=== PATIENT | female | born 1970 | race American Indian/Alaskan Native ===

== ENCOUNTER 2018-12-10 18:26 | Emergency (ER) | payer OTHER ==
--- NOTE | 2018-12-10 19:30 | Event Note ---
ED Screening Note Date of service: 12/10/18 Time: 19:26 ED Screening Note: This is a 48 y.o. F. that presents with right knee pain. Patient states her right knee popped back into place last night. She continue to feel like it will dislocate again. Patient states this happens occasionally but it never last as long as it was this time. PMH of leukemia This initial assessment/diagnostic orders/clinical plan/treatment(s) is/are subject to change based on patients health status, clinical progression and re- assessment by fellow clinical providers in the ED. Further treatment and workup at subsequent clinical providers discretion. Patient/guardian urged not to elope from the ED as their condition may be serious if not clinically assessed and managed. Initial orders include: XR right knee
--- NOTE | 2018-12-10 20:01 | XRay Report ---
Right knee-3 views INDICATION: pain and swelling anterior patella. COMPARISON: None. IMPRESSION: No acute osseous or soft tissue abnormality. No significant DJD. Signer Name: Erwin Hilliard MD Signed: 12/10/2018 7:57 PM Workstation Name: [id number]
--- NOTE | 2018-12-10 21:50 | Emergency Department Report ---
ED Extremity Problem HPI - General Chief complaint: Extremity Injury, Lower Stated complaint: R KNEE/ANKLE SWOLLEN Time Seen by Provider: 12/10/18 19:26 Source: patient Mode of arrival: Ambulatory Limitations: No Limitations - History of Present Illness Initial comments: Patient is a 8-year-old -[place] female with a history of hypertension, chronic degenerative joint disease of the right knee and ankle, and hypothyroidism who presents to the ED with complaint of acute exacerbation of her chronic right knee and ankle pain for the last 24 hours. Patient states that she may have dislocated her right knee out of place when she turned and twisted her right leg in the bed and possible. Patient states that she had a "pop" sound in the right knee before it came back in place. Patient states that for the last 24 hours the pain in the right knee and right ankle have been persistently worse. Patient denies dizziness, fever, chills, traumatic injury, heavy lifting, numbness and tingling of the right leg, low back pain, chest pain or shortness of breath. Patient states that she has not seen in the orthopedic surgeon for her chronic right knee and ankle joint pains. MD Complaint: extremity pain (right knee and ankle), extremity swelling (right ankle and knee), joint swelling (right knee and ankle), joint paint (right ankle and knee) -: Gradual, year(s) (many years) Location: right, knee, other (ankle) History of Same: Yes -: Yes arthralgia, No fever, No associated dyspnea, No associated chest pain Radiation: none Severity scale (0 -10): 4 Quality: aching, sharp Consistency: constant Improves with: nothing Worsens with: weight bearing, walking, exertion, palpation Associated Symptoms: denies other symptoms, arthralgias. denies: chest pain, shortness of breath, fever, myalgias, rash - Related Data Previous Rx's Medication Instructions Recorded Last Taken Type traMADol [Ultram] 50 mg PO Q6HR PRN #15 tablet 12/10/18 Unknown Rx Allergies Allergy/AdvReac Type Severity Reaction Status Date / Time Penicillins Allergy Anaphylaxis Verified 12/10/18 18:32 ED Review of Systems ROS: Stated complaint: R KNEE/ANKLE SWOLLEN Other details as noted in HPI Constitutional: denies: chills, fever Eyes: denies: eye pain, eye discharge, vision change ENT: denies: ear pain, throat pain Respiratory: denies: cough, shortness of breath, wheezing Cardiovascular: denies: chest pain, palpitations Endocrine: no symptoms reported Gastrointestinal: denies: abdominal pain, nausea, diarrhea Genitourinary: denies: urgency, dysuria, discharge Musculoskeletal: joint swelling (right knee and ankle), arthralgia (right knee and ankle), myalgia. denies: back pain Skin: denies: rash, lesions Neurological: denies: headache, weakness, paresthesias Psychiatric: denies: anxiety, depression Hematological/Lymphatic: denies: easy bleeding, easy bruising ED Past Medical Hx - Past Medical History Previous Medical History?: Yes Additional medical history: Leukemia 2016 no treatment "monitoring" - Surgical History Past Surgical History?: Yes Additional Surgical History: 2010 - Social History Smoking Status: Never Smoker - Medications Home Medications: Home Medications Medication Instructions Recorded Confirmed Last Taken Type traMADol [Ultram] 50 mg PO Q6HR PRN #15 tablet 12/10/18 Unknown Rx ED Physical Exam - General Limitations: No Limitations General appearance: alert, in no apparent distress - Head Head exam: Present: atraumatic, normocephalic, normal inspection - Eye Eye exam: Present: normal appearance, PERRL, EOMI. Absent: scleral icterus, conjunctival injection, periorbital swelling, periorbital tenderness Pupils: Present: normal accommodation - ENT ENT exam: Present: normal exam, normal orophraynx, mucous membranes moist, TM's normal bilaterally, normal external ear exam - Neck Neck exam: Present: normal inspection, full ROM. Absent: tenderness, lymphadenopathy - Respiratory Respiratory exam: Present: normal lung sounds bilaterally. Absent: respiratory distress, wheezes, rales, chest wall tenderness, accessory muscle use, decreased breath sounds - Cardiovascular Cardiovascular Exam: Present: regular rate, normal rhythm, normal heart sounds. Absent: systolic murmur, diastolic murmur, rubs, gallop - GI/Abdominal GI/Abdominal exam: Present: soft, normal bowel sounds. Absent: distended, tenderness, guarding, rebound, hyperactive bowel sounds, hypoactive bowel sounds, organomegaly - Rectal Rectal exam: Present: deferred - Extremities Exam Extremities exam: Present: normal inspection, tenderness (right ankle and knee), normal capillary refill, joint swelling (right knee and ankle). Absent: full ROM (due to pain), calf tenderness - Back Exam Back exam: Present: normal inspection, full ROM. Absent: tenderness, CVA tenderness (R), CVA tenderness (L), muscle spasm, paraspinal tenderness, vert ebral tenderness - Neurological Exam Neurological exam: Present: alert, oriented X3, CN II-XII intact, normal gait, reflexes normal - Psychiatric Psychiatric exam: Present: normal affect, normal mood - Skin Skin exam: Present: warm, dry, intact, normal color. Absent: rash ED Course Vital Signs 12/10/18 19:30 Temperature 97.0 F L Pulse Rate 70 Respiratory 18 Rate Blood Pressure 103/71 O2 Sat by Pulse 98 Oximetry - Reevaluation(s) Reevaluation #1: 12/10/18 21:51 Patient is alert and oriented 3 and is not in any distress. Patient's vital signs are stable and normal. Right knee x-ray shows no acute fractures or subluxations. Patient had Raffi wrap applied to the right knee and right ankle and discharged home on pain medication and advised to follow-up with the orthopedic surgeon Dr. Caballero for follow-up. Patient was advised to contact Dr. Caballero's office to schedule an appointment. ED Medical Decision Making - Radiology Data Radiology results: report reviewed, image reviewed Right knee x-ray: No acute fractures or subluxations - Medical Decision Making Patient is alert and oriented 3 and is not in any distress. Patient's vital signs are stable and normal. Right knee x-ray shows no acute fractures or subluxations. Patient had Raffi wrap applied to the right knee and right ankle and discharged home on pain medication and advised to follow-up with the orthopedic surgeon Dr. Caballero for follow-up. Patient was advised to contact Dr. Caballero's office to schedule an appointment. - Differential Diagnosis Right knee sprain; Right ankle osteoarthritis; chronic pain Critical care attestation.: If time is entered above; I have spent that time in minutes in the direct care of this critically ill patient, excluding procedure time. ED Disposition Clinical Impression: Degenerative joint disease of right knee Qualifiers: Osteoarthritis type: primary Qualified Code(s): M17.11 - Unilateral primary osteoarthritis, right knee Osteoarthritis of right ankle Qualifiers: Osteoarthritis type: primary Qualified Code(s): M19.071 - Primary osteoarthritis, right ankle and foot Disposition: -01 TO HOME OR SELFCARE Is pt being admited?: No Does the pt Need Aspirin: No Condition: Stable Instructions: Osteoarthritis (ED) Additional Instructions: Take medications as needed for pain with food, follow-up with Dr. Caballero as advised. Return to the ED immediately if symptoms get worse. Prescriptions: traMADol [Ultram] 50 mg PO Q6HR PRN #15 tablet PRN Reason: Pain Referrals: FAUSTINO KUMAR MD [Primary Care Provider] - 3-5 Days KATY CABALLERO MD [Staff Physician] - 3-5 Days Time of Disposition: 21:54 Print Language: INDIAN
[2018-12-10 22:05] VITALS: BP 108/67
== END 2018-12-10 22:05 | disposition home or self-care (01) ==
LOC: ED 18:26
DX: M19.071 Primary osteoarthritis, right ankle and foot (principal); M17.11 Unilateral primary osteoarthritis, right knee; Z98.890 Other specified postprocedural states; Z88.6 Allergy status to analgesic agent; Z88.0 Allergy status to penicillin
CPT/HCPCS: 99283

== ENCOUNTER 2022-01-02 10:04 | Outpatient (CLI) | payer OTHER ==
[2022-01-02 10:36] LABS: Hematocrit 36.6 % (30.3-42.9); Hemoglobin 12.2 gm/dl (10.1-14.3); Mean Corpuscular HGB Conc 33 % (30-34); Mean Corpuscular Volume 98 fl (79-97); Platelet Count 122 K/mm3 (140-440); Red Blood Count 3.75 M/mm3 (3.65-5.03); Red Cell Distribution Width 13.4 % (13.2-15.2)
[2022-01-02 13:17] LABS: Basophils % (Manual) 0 % (0.0-1.8); Eosinophils % (Manual) 0 % (0.0-4.3); Total Cells Counted 100
[2022-01-02 13:18] LABS: Large Platelets Few; Platelet Estimate Consistent w Auto; Spherocytes Rare
== END 2022-01-02 10:05 | disposition home or self-care (01) ==
LOC: LAB 10:04
PROVIDERS: ATTEND Internal Medicine
DX: Z02.71 Encounter for disability determination (principal)
CPT/HCPCS: 36415; 85007; 85025